=== PATIENT | male | born 1945 | race Caucasian/White ===

== ENCOUNTER → 2017-06-05 | Outpatient (CLI) | payer OTHER ==
[~2017-06-05] VITALS: Ht 188 cm; Wt 124.7 kg
[~2017-06-05] MED LIST: ACETAMINOPHEN325 M1 PO; ACETAMINOPHEN500 M1 PO; ADULT LOW DOSE81 MG PO; AMARYL4 MG PO; ASPIR 8181 MG PO; BACTRIM DS TAB1 EACH PO; BYETTA PEN 11 PENIN1; BYETTA PEN 11 PENIN2 SUBQ; CRESTOR40 MG PO; DAILY VITAMIN1 EAC5 PO; DIABETA 1.25M1.25 M1; DIABETA 5MG TABL5 MG PO; FUROSEMIDE 20 M20 MG PO; GLUCOPHAGE1000 MG PO; HUMALOG100 UNIT/1 SUBQ; JARDIANCE10 MG PO; LANSOPRAZOLE30 MG PO; LANTUS SUBQ; LEVEMIR100 UNIT/1 SUBQ; LIPITOR80 MG PO; LISINOPRIL5 MG PO; METFORMIN HYDRO25 GM; METOCLOPRAMIDE10 MG PO; METOPROLOL SUCC25 M1; METOPROLOL SUCC50 MG PO; MULTIVITAMINS PO; NIACIN50 MG; NOVOLOG100 UNIT/1 SUBQ; OMEPRAZOLE20 MG PO; PEPCID20 MG; PLAVIX 75 MG TA75 MG PO; REGLAN 10 MG TA10 MG PO; SIMVASTATIN1 GM; SLO-NIACIN500 MG PO; TRICOR145 MG PO; TRICOR48 MG; VICTOZA 3-0.6 MG/0.1 SUBQ; VITAMIN C1000 MG PO; VITAMIN D 5050000 I1 PO; ZETIA10 MG PO; [UNRECOGNIZED DRUG - OTHER]
--- NOTE | ~2017-06-05 | P ---
[facility] [place] [address] PROCEDURE REPORT Name: CHEN VEE [id number] Admission: 06/05/17 Attend Phys: Chaka Del Toro MD Discharge: Date of : 45 Report #: [id number] THIS REPORT FOR: //name// CC: Chaka Hensley MD DATE OF SERVICE: 06/05/2017 BRIEF HISTORY: The patient is a 72-year-old male who was recently seen in the office. He has a history of multiple medical problems including diabetes. He has had problems with reflux in the past. He has also been on metoclopramide for an extended period of time, presumably for gastroparesis. He was recently advised by his pharmacist to discontinue PPI, which I believe was lansoprazole. He reports he is having more problems with reflux disease and did report some dysphagia in the office. However, interestingly, today, he clearly denies symptoms of solid food dysphagia. He reports his GI symptoms are worse. In addition to reflux, he reports frequent belching and some early satiety. PREOPERATIVE DIAGNOSIS: Worsening GI symptoms off his PPI therapy. POSTOPERATIVE DIAGNOSES: Mild diffuse gastritis. MEDICATIONS: Deep sedation with propofol per anesthesia. SPECIMEN: Biopsies of gastritis. ESTIMATED BLOOD LOSS: 3 mL. PROCEDURE: EGD with biopsy. FINDINGS: Prior to propofol sedation, procedure of upper endoscopy was discussed with the patient as well as potential risks and its complications. He indicates he understands and desires to proceed. DESCRIPTION OF PROCEDURE: With the patient in left lateral decubitus position, the Fuji video endoscope was inserted in the cervical esophagus under direct vision without difficulty. Examination of this organ through its entire length revealed normal esophageal mucosa down the squamocolumnar junction. Squamocolumnar junction was inspected and noted to be unremarkable. I did not see hiatus hernia. In addition, there was no evidence of strictures or rings. Features of eosinophilic esophagitis were not seen. A hiatus hernia was not seen. The scope was advanced in the stomach, which was examined on end view as well as retroflexed views. There was some antral erythema. No ulcers were seen. In view of his diabetes and symptoms including early satiety, there is no endoscopic evidence of gastroparesis with retained solids or liquids in the [address] [address] PROCEDURE REPORT Name: CHEN VEE Room #: REG [facility].#: [id number] Admission: 06/05/17 Attend Phys: Chaka Del Toro MD Discharge: Date of : 45 Report #: [id number] stomach. Upon retroflexion, no mass lesions were seen. The pylorus was normal. Duodenal bulb was normal. Duodenal sweep down the third portion was normal. At that point, scope was withdrawn and careful circumferential views confirmed the above findings. The patient tolerated the procedure well. CONDITION OF THE PATIENT UPON DISCHARGE: Following the procedure, the patient was drowsy and will be discharged home when fully ambulatory. INSTRUCTIONS TO THE PATIENT AND FAMILY AT THE TIME OF DISCHARGE: The patient reports worsening of symptoms off his PPI. He was told by his pharmacist that there was a drug interaction with one of his medicines, which as best I can determine was lansoprazole. I asked him to speak with the pharmacist and apparently, he did but did not bring that information with him today. He may benefit from continued use of a PPI. We will have him call the office with that information, we will make further recommendations after that information has been received. At this time, we will follow up on biopsies. He has been taking metoclopramide for an extended period of time and reports no side effects associated with metoclopramide. For the fci, I would like to see if we can reduce his use of metoclopramide. For the time being, we will have him continue metoclopramide and see me in followup in the office to monitor his symptoms and make further recommendations. Otherwise, he will return to the care of Dr. Aaron Hensley and he should return to see me next several weeks in the office to follow up his symptoms. <ELECTRONICALLY SIGNED> By: Chaka Del Toro MD 06/06/17 2032 1046 1109 Chaka Del Toro MD /nt
--- NOTE | ~2017-06-05 | S ---
[facility] [place] [address] SURGICAL PATH RPT PROCEDURE Name: CHEN VEE Room #: REG CHRISTI Riley#: [id number] Admission: 06/05/17 Date of : 45 Discharge: Report #: [id number] Path Case #: [id number] PATHOLOGY REPORT COLLECTION DATE: 06/05/2017 RECEIVED DATE: 06/05/2017 SUBMITTING PHYS: Dr. Chaka Del Toro OTHER PHYS: Dr. Aaron Hensley SPECIMEN(S) RECEIVED: ASonBx of gastritis * * * * * * * * * * * * FINAL DIAGNOSIS: Gastric mucosa, gastritis, endoscopic biopsy: - Moderate reactive gastropathy. - Negative for intestinal metaplasia or atrophy. - Negative for Helicobacter pylori. (IUV:kori; 06/06/2017) COMMENT: Well-controlled Helicobacter pylori immunohistochemical stain performed on block A1- Negative. PATHOLOGIST: Lisa Nix M.D. REPORT ELECTRONICALLY SIGNED BY: Lisa Nix M.D. DATE/TIME: 06/06/2017 14:05 * * * * * * * * * * * * GROSS PATHOLOGY: Received in formalin labeled "DMAARIS Dhaliwal of gastritis," are 6 segments of sabillon soft tissue measuring 1.7 x 0.9 x 0.2 cm in aggregate dimensions and ranging from 0.3 to 0.5 cm in maximum dimension. The specimen is submitted entirely in cassette A1. (TSD; 06/05/2017) CLINICAL HISTORY: Pre-OP DX: GERD Post-OP DX: Gastritis INITIAL CPT CODE(S): A; 36457, 29503 [facility] [address], [place] [address] [facility] [address] [place] [address] SURGICAL PATH RPT PROCEDURE Name: CHEN VEE Room #: REG CHRISTI Zepeda.#: [id number] Admission: 06/05/17 Date of : 45 Discharge: Report #: [id number] Path Case #: [id number] Technical [facility] by [facility] at [address] [place] [address], [facility] [address] [address]. [facility] [address] [address] PHONE: [phone] DIRECTOR: Larry Bueno M.D. * * * END OF REPORT * * *
== END | disposition home or self-care (01) ==
LOC: GI 08:05
DX: K31.9 Disease of stomach and duodenum, unspecified (principal); K21.9 Gastro-esophageal reflux disease without esophagitis; I10 Essential (primary) hypertension; E11.9 Type 2 diabetes mellitus without complications; I25.10 Atherosclerotic heart disease of native coronary artery without angina pectoris; E78.00 Pure hypercholesterolemia, unspecified; Z95.1 Presence of aortocoronary bypass graft; Z98.890 Other specified postprocedural states; Z86.73 Personal history of transient ischemic attack (TIA), and cerebral infarction without residual deficits; Z95.5 Presence of coronary angioplasty implant and graft; Z79.4 Long term (current) use of insulin; Z79.899 Other long term (current) drug therapy
CPT/HCPCS: 62110; 62900

== ENCOUNTER 2017-07-17 16:23 | Emergency (ER) | payer OTHER ==
[~2017-07-17] VITALS: Ht 188 cm; Wt 123.4 kg
[2017-07-17] MEDS ORDERED: CLINDAMYCIN HC300 MG PO (17:44)
[2017-07-17 18:09] LABS: HEMATOCRIT 43.9 % (42.0-52.0); HEMOGLOBIN 14.5 gm/dL (14.0-18.0); MCH 28.4 pg (26.0-34.0); MCHC 32.9 g/dL (28.0-37.0); MCV 86.3 fL (80.0-100.0); PLATELET COUNT 336 thou/uL (150-400); RBC 5.08 mil/uL (4.50-6.00); RDW 15.5 % (10.5-14.5); WBC 9.6 thou/uL (4.0-11.0)
[2017-07-17 18:17] LABS: CALCIUM 9.6 mg/dL (8.5-10.1); CREATININE 1.5 mg/dL (0.7-1.3); POTASSIUM 4.3 mmol/L (3.5-5.1)
[2017-07-17] MEDS ORDERED: TRAMADOL 50 MG50 MG PO (18:20)
[2017-07-17 18:27] LABS: ABSOLUTE NEUTROPHILS 4.7 thou/uL (1.4-8.2)
== END 2017-07-17 18:54 | disposition home or self-care (01) ==
LOC: ER 16:23
PROVIDERS: Emergency Medicine
DX: L03.021 Acute lymphangitis of right finger (principal); I25.10 Atherosclerotic heart disease of native coronary artery without angina pectoris; I10 Essential (primary) hypertension; E11.9 Type 2 diabetes mellitus without complications; K21.9 Gastro-esophageal reflux disease without esophagitis; E78.00 Pure hypercholesterolemia, unspecified; Z86.73 Personal history of transient ischemic attack (TIA), and cerebral infarction without residual deficits; Z79.4 Long term (current) use of insulin

== ENCOUNTER → 2017-08-04 | Outpatient (CLI) | payer OTHER ==
[~2017-08-04] VITALS: Ht 188 cm; Wt 123.4 kg
[~2017-08-04] MED LIST changes: +ASPIR 8181 M1 PO; +CLINDAMYCIN HC300 MG PO; +TRAMADOL 50 MG50 MG PO; +VOLTAREN GEL 1100 G2 TOP; +ZANAFLEX4 MG PO
--- NOTE | ~2017-08-04 | HPC ---
[facility] [address] [place] [address] PAIN MANAGEMENT CONSULTATION Name: NANDACHEN SENA Room #: REG [facility] Riley#: [id number] Admission: 08/04/17 Attend Phys: Carlos Pandya DO Discharge: Date of : 45 Report #: [id number] THIS REPORT FOR: //name// CC: Aaron Pandya The patient is a 72-year-old gentleman seen in consultation at the request of Dr. Aaron Hensley for evaluation of pain primarily in the neck, but axial back as well. The patient notes in 1991, he had acute exacerbation of axial back pain. He states his back "went out." He was treated conservatively with physical therapy off work for about 6 weeks. Since that time, he has had on and off axial back pain; however, he has had pain in his neck for greater than a decade. It has gotten to the point that he is having difficulty with sleep secondary to neck pain. Fortunately, he denies any radicular or myelopathic symptoms. He takes ibuprofen, but this causes gastroesophageal reflux. He is taking tramadol up to 3 a day, but this has exacerbated some constipation concerns. He describes steady, aching pain, rates anywhere from 5-10 on a visual analog scale. REVIEW OF SYSTEMS: Complete review of systems is attached to chart and gone over with the patient. He is , does not smoke or drink alcohol to excess. Long history of diabetes since the early . Uses Victoza, insulin, metformin. He tells me his last hemoglobin A1c was remarkably well controlled at 5.8. History of hypertension, treated with lisinopril and metoprolol. Coronary artery disease, status post coronary artery bypass graft x 5 in 2007, endovascular stents in 2014. He has been off blood thinners now for quite some time. Dyslipidemia for which he takes Lipitor. Pantoprazole for gastroesophageal reflux. The remaining review of systems is noncontributory. The patient recently presented to the ER, 07/17/2017 with infection in his index finger. He has subsequently completed a 10-day course of antibiotics. He is also seeing an ENT surgeon (Yeison Alcantar MD) for olfactory and gustatory agnosia. Recently started on a course of antibiotics for presumed sinus infection as a possible etiology of loss of smell and taste. PHYSICAL EXAMINATION: Reveals a 6 feet 2 inches, 272 pounds gentleman, BMI 34.9 kilograms per meter squared. Blood pressure 139/76, pulse 81, respirations are 20. Cranial nerves 2-12 are grossly intact. Extraocular muscles are intact. There is no nystagmus or lateral gaze deviation. Cervical range of motion is full, though pain is reproduced with movement in all planes. He is tender to palpation over the mid cervical facets. Upper extremity strength is generally preserved. He does still have a little erythema about the distal right index finger. Upper extremity strength is about 4/5 with slight decreased right biceps strength at 3/5 (the patient prior had a traumatic disruption of the biceps tendon in the distant past). Heart is regular and rhythmical without [facility] [address] [place] [address] PAIN MANAGEMENT CONSULTATION Name: CHEN VEE Room #: REG CHRISTI Riley#: [id number] Admission: 08/04/17 Attend Phys: Carlos Pandya DO Discharge: Date of : 45 Report #: [id number] murmur. Lungs are clear to auscultation. He has a moderately endomorphic build. Rises from chair using armrest. Gait is mildly ataxic. Lumbar flexion is good to about 80 degrees. Tender across the low back about the L4-L5 area, pain in the low back exacerbated with rotation and sidebending. Lower extremity strength is generally preserved about 4/5 to all muscle groups tested. Does have a little +1-2 pretibial edema in the right lower extremity, left is unremarkable. Patellar and Achilles reflexes are diminished, but symmetric. Straight leg raise is negative. Skin integument is otherwise intact. DIAGNOSTIC STUDIES: Include x-rays of the cervical spine from 07/20/2017, which notes multilevel exuberant hypertrophic degenerative changes of the facets, left worse than right with some generalized osteopenia, disk space narrowing is greatest at C6-C7. Similarly, the lumbar spine from 07/20/2017 notes grade 1 anterolisthesis at L4-L5, some disk space narrowing with bilateral facet arthrosis at L4-L5 and L5-S1. 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 RECOMMENDATIONS: Discussion with the patient today about therapeutic options. We will try Voltaren gel topically and tizanidine 4 mg 1-2 at bedtime. If this does not afford adequate relief in 1 week, we will move forward with fluoroscopically-guided facet joint injections, specifically targeting C4-C5 and C5-C6. Thank you for allowing me to participate in the patient's care. I will keep you abreast of his progress. <ELECTRONICALLY SIGNED> By: Carlos Pandya DO 08/07/17 0709 1302 2115 Carlos Pandya DO /nt
[2017-08-04 10:30] VITALS: BP 139/76
== END ==
LOC: PAIN 07:31
DX: M47.892 Other spondylosis, cervical region (principal); M47.896 Other spondylosis, lumbar region; E11.9 Type 2 diabetes mellitus without complications

== ENCOUNTER → 2017-08-11 | Outpatient (CLI) | payer OTHER ==
[~2017-08-11] VITALS: Ht 188 cm; Wt 123.8 kg
[~2017-08-11] MED LIST changes: +TYLENOL EXTRA500 MG PO; +VITAMIN D31000 UNI2 PO
--- NOTE | ~2017-08-11 | HPC ---
[facility] [address] [place] [address] PAIN MANAGEMENT CONSULTATION Name: CHEN VEE Room #: ZAIRA CHRISTI Riley#: [id number] Admission: 08/11/17 Attend Phys: Carlos Pandya DO Discharge: Date of : 45 Report #: [id number] THIS REPORT FOR: //name// CC: Aaron Pandya The patient is a pleasant 72-year-old gentleman originally seen in consultation on 08/04/2017, diagnosed with symptomatic cervical spondylosis without myelopathy, a component of lumbar spondylosis as well, primary pain in the neck. Comorbidities including insulin dependent diabetes and coronary artery disease. Started the patient on Voltaren gel topically and tizanidine at bedtime. Planned to move forward with bilateral facet injections (C3-C4 and C4-C5 bilateral). The patient returns to pain clinic today, getting some relief with the topical Voltaren gel and tizanidine 1 at bedtime, but still rates his pain a 5-6 on a VAS, primarily in the neck, some low back pain. Notes, the pain is exacerbated with cervical range of motion and standing. PHYSICAL EXAMINATION: Relatively unchanged from prior presentation, a 72-year-old gentleman, BMI is 35 kilograms per meter squared. Vital signs stable as noted in the EMR. Tender across the upper mid cervical facets. Pain is exacerbated with rotation and sidebending. Some diffuse axial back pain, no discrete trigger points are noted. ASSESSMENT: Symptomatic cervical spondylosis by clinical exam and history. PROCEDURE: Bilateral C3-C4 and C4-C5 facet joint injections under fluoroscopy. PROCEDURE NOTE: After written informed consent was obtained, the patient was taken to fluoroscopy suite, placed in prone position. After sterile prep and drape, skin wheal was raised. A 22-gauge stylet needle was placed to contact posterior aspect of left C3-C4 and left C4-C5 cervical facet. AP and lateral projections showed good needle placement approaching posterior aspect of the joint. Procedure was repeated on the right hand side. After all four needles were placed, they were injected with 2 mg of Decadron and 1 mL of 1% preservative-free Xylocaine. After all four needles were removed, the area was cleansed, Band-Aids applied. The patient monitored for an appropriate period of time. Please do note, the patient noted his pain was absent on discharge, a 100% relief. Fluoroscopy time was 7 seconds. We will have the patient monitor blood sugars and adjust sliding scale insulin as needed. Follow up in approximately 6 weeks for reevaluation. He does have sinus surgery scheduled in about 3 [place] [address] PAIN MANAGEMENT CONSULTATION Name: CHEN VEE Room #: REG CHRISTI Riley#: [id number] Admission: 08/11/17 Attend Phys: Carlos Pandya DO Discharge: Date of : 45 Report #: [id number] Given that I will be out of the practice area, I will have him follow up with Dr. Chetan Mccauley. <ELECTRONICALLY SIGNED> By: Carlos Pandya DO 08/14/17 0709 1207 25 Carlos Pandya DO /nt
[2017-08-11 10:51] VITALS: BP 126/72
== END | disposition home or self-care (01) ==
LOC: PAIN 06:58
DX: M47.812 Spondylosis without myelopathy or radiculopathy, cervical region (principal); G89.29 Other chronic pain; E11.9 Type 2 diabetes mellitus without complications; I25.10 Atherosclerotic heart disease of native coronary artery without angina pectoris; Z79.4 Long term (current) use of insulin; Z79.891 Long term (current) use of opiate analgesic; Z79.82 Long term (current) use of aspirin; Z79.899 Other long term (current) drug therapy

== ENCOUNTER 2017-08-28 05:33 | Day surgery (SDC) | payer OTHER ==
[~2017-08-28] VITALS: Ht 188 cm; Wt 122.0 kg
--- NOTE | ~2017-08-28 | H ---
[facility] [place] [address] HISTORY AND PHYSICAL Name: CHEN VEE Room #: 150-2 [facility] M..#: [id number] Admission: 08/28/17 Attend Phys: Yeison Alcantar MD Discharge: Date of : 45 Report #: [id number] THIS REPORT FOR: //name// CC: Yeison Hensley His procedure is scheduled for the 28 of August. The patient has difficulty with his sense of taste and smell. He says that he does not breathe very well through his nose, especially at night. He has been getting a lot of sinus infections. A CT scan of his sinuses showed complete opacification of the right maxillary sinus with hypertrophy in the bone consistent with chronic sinusitis. There was swelling in the ostiomeatal area and into the anterior ethmoid air cells. This was limited to the right side. PAST MEDICAL HISTORY: Otherwise, not significant. MEDICATIONS: Include pantoprazole, Lasix, insulin, tramadol, metformin, aspirin, Lipitor, Levemir, Reglan, metoprolol, lisinopril, glimepiride. ALLERGIES: He has no known drug allergies. PHYSICAL EXAMINATION: His nose was congested. His oropharynx and oral cavity were clear. IMPRESSION: Chronic maxillary and ethmoid sinusitis. PLAN: Right endoscopic maxillary antrostomy and anterior ethmoidectomy. <ELECTRONICALLY SIGNED> By: Yeison Alcantar MD 08/28/17 0737 1336 1408 Yeison Alcantar MD /yasmin
--- NOTE | ~2017-08-28 | H ---
[facility] [place] [address] HISTORY AND PHYSICAL Name: CHEN VEE Room #: 150-2 [facility] M.R.#: [id number] Admission: 08/28/17 Attend Phys: Yeison Alcantar MD Discharge: Date of : 45 Report #: [id number] THIS REPORT FOR: //name// CC: Yeison Hensley DATE OF SERVICE: 08/28/2017 PREOPERATIVE DIAGNOSES: Chronic maxillary and ethmoid sinusitis right side with bleeding from the nose on the left side. POSTOPERATIVE DIAGNOSES: Chronic maxillary and ethmoid sinusitis right side with bleeding from the nose on the left side. OPERATIVE PROCEDURE: Endoscopic control of epistaxis left side, endoscopic right maxillary antrostomy with removal of tissue, and right anterior ethmoidectomy. ANESTHESIA: General by laryngeal mask. DESCRIPTION OF PROCEDURE: The patient was taken to the operating room and placed in supine position. General anesthesia was induced by laryngeal mask. Once adequate general anesthesia was obtained, local nasal anesthesia was induced by submucoperiosteal injection of 1% lidocaine with 1:100,000 epinephrine and topical application of cocaine solution. The patient was then draped in a sterile manner. The nasal endoscope was used to visualize the left nasal cavity and I examined the left nasal cavity including the turbinates, middle meatus and inferior meatus. There was some bleeding from the mid superior septum. This was controlled with silver nitrate cautery. On the right side, the middle turbinate was deviated medially and the uncinate process was removed using a curved blade on the microdebrider. I found the natural opening of the maxillary sinus and then removed the soft fontanelle posteriorly and inferiorly. Within the sinus was thick purulent mucus with a lot of swelling. I was able to make a large maxillary antrostomy by removing the soft fontanelle and then removing tissue from the natural opening area and then inferiorly taking down a portion of the medial wall. An ethmoidectomy was performed by removing the ethmoidal bulla and then following the ethmoid air cells back to the basal lamella and then superiorly towards the frontal duct at the root of the uncinate process. FloSeal was placed into the middle meatus for hemostasis. Blood loss of procedure was 5 mL. The patient was then awoken and taken to the recovery room in stable condition for postoperative monitoring. By: 0824 0836 Yeison Alcantar MD /nt
[2017-08-28 06:45] LABS: CALCIUM 9.3 mg/dL (8.5-10.1); CREATININE 1.2 mg/dL (0.7-1.3)
[2017-08-28 06:47] LABS: POTASSIUM 4.8 mmol/L (3.5-5.1)
[2017-08-28 06:50] LABS: ALBUMIN 3.5 g/dL (3.4-5.0); TOTAL BILIRUBIN 0.5 mg/dL (<0.1-1.0)
[2017-08-28 07:46] VITALS: BP 131/75
[2017-08-28 08:49] VITALS: BP 131/75
== END 2017-08-28 09:20 | disposition home or self-care (01) ==
LOC: OR 05:33 → TBA 05:33 → OR 09:20
PROVIDERS: Otolaryngology
DX: J32.0 Chronic maxillary sinusitis (principal); J32.2 Chronic ethmoidal sinusitis; R04.0 Epistaxis; I10 Essential (primary) hypertension; E11.9 Type 2 diabetes mellitus without complications; E78.00 Pure hypercholesterolemia, unspecified; K21.9 Gastro-esophageal reflux disease without esophagitis; Z79.899 Other long term (current) drug therapy; Z79.4 Long term (current) use of insulin; Z86.73 Personal history of transient ischemic attack (TIA), and cerebral infarction without residual deficits; Z98.890 Other specified postprocedural states; Z79.82 Long term (current) use of aspirin
CPT/HCPCS: 50010; 50101; 50386; 50398; 51751; 56635; 62110; 62900; 70005

== ENCOUNTER → 2017-10-23 | Outpatient (CLI) | payer OTHER ==
[~2017-10-23] VITALS: Ht 188 cm; Wt 124.6 kg
[~2017-10-23] MED LIST changes: +NORCO 5-325 TA1 EACH PO; +PREVACID30 MG PO; +SYNTHROID25 MC1 PO
--- NOTE | ~2017-10-23 | HPC ---
[facility] [address] [address] PAIN MANAGEMENT CONSULTATION Name: CHEN VEE Room #: REG CHRISTI Rosemary#: [id number] Admission: 10/23/17 Attend Phys: Chetan Mccauley MD Discharge: Date of : 45 Report #: [id number] THIS REPORT FOR: //name// CC: Chetan Hensley MD DATE OF SERVICE: 10/23/2017 CHIEF COMPLAINT: Low back pain with radiation into the left leg. The patient is a 72-year-old gentleman who sees Dr. Pandya in the past. With Dr. Pandya's departure to [facility], I have taken over his care in the pain clinic. He is here today with a history of chronic neck pain, but his biggest problem is back and leg pain that follows a dermatomal distribution. He has mild discomfort in the right. He says the pain is severe when he is standing or walking or any sort of weightbearing activities and has been progressively worse. He has been alleviating with a hot shower. The patient has a history of a thalamic infarct and coronary artery disease. He has sleep apnea, insulin-dependent diabetes and chronic kidney disease. He follows with mechanic assistant, Dr. Srikanth May. He has been on Plavix in the past. He was uncertain if he was on it and needed to call home and his confirmed that the shoe box where he keeps his current medicines did not contain a Plavix bottle. At any rate, we were still concerned that given some of his confusion over his medicines that he perhaps had taken Plavix. I was not inclined to provide him with an injection today. His PQRS shows a slightly confused 72-year-old gentleman, 35 BMI. History of hypertension, but it is well controlled with a blood pressure of 138/83 and heart rate 86. He is not a fall risk evident by his exam today and has denied a fall in the last 3 months. He is not on any opioid medications from our clinic at this time, but has received a prescription from Dr. Hensley for 42 tablets within the last month. Apparently, Dr. Hensley is retiring and he is not sure where he will get medications coming in the future. All other medications were reviewed and reconciled. Physical exam continuation shows tenderness across the low back, pain with forward flexion, extension, and positive straight leg raising on the left reproducing pain in the L4-L5 and L5-S1 distribution. IMPRESSION: 1. Lumbar radiculopathy, left. 2. Cervicalgia with facet arthropathy. 3. [place] [address] PAIN MANAGEMENT CONSULTATION Name: NANDACHEN SENA Room #: REG CHRISTI Riley#: [id number] Admission: 10/23/17 Attend Phys: Chetan Mccauley MD Discharge: Date of : 45 Report #: [id number] 4. Hypertension. 5. Obstructive sleep apnea. 6. Insulin-dependent diabetes. 7. Hypertension. 8. Chronic kidney disease. 9. Gastroesophageal reflux disease. PLAN: The patient will return to the pain clinic in 1 week for an epidural steroid injection. By: 1728 0056 Chetan Mccauley MD /nt
[2017-10-23 14:29] VITALS: BP 138/63
== END ==
LOC: PAIN 07:01
DX: M54.16 Radiculopathy, lumbar region (principal); M54.2 Cervicalgia; I12.9 Hypertensive chronic kidney disease with stage 1 through stage 4 chronic kidney disease, or unspecified chronic kidney disease; N18.9 Chronic kidney disease, unspecified; E11.9 Type 2 diabetes mellitus without complications; I25.10 Atherosclerotic heart disease of native coronary artery without angina pectoris; G47.33 Obstructive sleep apnea (adult) (pediatric); K21.9 Gastro-esophageal reflux disease without esophagitis

== ENCOUNTER 2017-12-13 05:23 | Observation (INO) | payer OTHER ==
[~2017-12-13] VITALS: Ht 188 cm; Wt 122.0 kg
--- NOTE | ~2017-12-13 | PATH ---
[facility] [address] [place] [address] PATHOLOGY RPT PROCEDURE Name: CHEN VEE Room #: 424-P WAQAS Hernandez MCora#: [id number] Admission: 12/13/17 Date of : 45 Discharge: 12/14/17 Report #: [id number] Path Case #: [id number] [facility] Accession Number: [id number] . 01 Material submitted: . GALLBLADDER . 01 Clinician provided ICD-10: K80.20 . 01 Clinical history: . Gallstones . 02 Diagnosis: Gallbladder, cholecystectomy: - Mild chronic cholecystitis. - Cholelithiasis. . 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 02 Electronically signed: . Lisa Nix MD, Pathologist NPI- [id number] . 01 Gross description: . The specimen is received in formalin, labeled "Chen Vee, gallbladder" and consists of an intact green-sabillon gallbladder measuring 6.8 x 2.4 x 2.0 cm. Opening the specimen reveals the gallbladder is filled with multiple black and asymmetrically shaped calculi measuring 3.3 x 3.0 x 1.2 cm in aggregate. The mucosa is green-sabillon and trabeculated with a wall thickness ranging from 0.1-0.2 cm. No masses or lesions are identified. Seedling Sorter sections are submitted in A1. (SDY; 12/13/2017) SYU/SYU . 02 Pathologist provided ICD-10: K80.10 . 02 CPT . 934670 Specimen Comment: A courtesy copy of this report has been sent to Specimen Comment: [phone], . Specimen Comment: Report sent to / DR KENT Performed at: [address] [id number] [address] [address] PATHOLOGY RPT PROCEDURE Name: CHEN VEE Room #: 424-P WAQAS Riley#: [id number] Admission: 12/13/17 Date of : 45 Discharge: 12/14/17 Report #: [id number] Path Case #: [id number] MD George Goyal MD Phone: [phone] Performed at: [address] [id number] MD Lisa Nix MD Phone: [phone]
--- NOTE | ~2017-12-13 | O ---
[facility] [place] [address] OPERATIVE REPORT Name: CHEN VEE Room #: 150-1 [facility]..#: [id number] Admission: 12/13/17 Attend Phys: Darnell Cool MD Discharge: Date of : 45 Report #: [id number] THIS REPORT FOR: //name// CC: Aaron Cool DATE OF SERVICE: 12/13/[address] Aaron Hensley and Dr. Darnell Cool. PREOPERATIVE DIAGNOSES: Cholelithiasis, cholecystitis, biliary colic. POSTOPERATIVE DIAGNOSES: Cholelithiasis, cholecystitis, biliary colic. PROCEDURE: Laparoscopic cholecystectomy. SURGEON: Darnell Cool MD. UAT TESTER: Leatha Lutz RN. ANESTHESIA: General. DESCRIPTION OF PROCEDURE: The patient was brought to the operating room and placed on operative table in the supine position. Sequential compression devices were in place for DVT prophylaxis. He received an appropriate preoperative dose of antibiotics. The patient underwent a general endotracheal anesthesia and the abdomen was then prepped and draped in a sterile fashion. Skin and subcutaneous tissue around the umbilicus was then infiltrated with 0.5% Marcaine. Infraumbilical skin incision was then performed using #11 scalpel blade. Dissection was carried down through subcutaneous tissue and the fascia, which was then grasped between 2 Triston clamps and incised with the curved Hernandes scissors. Peritoneum was entered and a pursestring suture of 0 Vicryl was then placed in the fascia. A 12-mm disposable Pau port was inserted through the opening and held into place with the balloon port and the pursestring suture. Pneumoperitoneum was obtained to a level of 10-15 mmHg. Laparoscope was inserted through this port and additional ports were then placed under direct visualization. There were 2 right upper quadrant 5-mm Surgiport as well as an upper midline 11-mm Surgiport all inserted under direct visualization after infiltration with 0.5% Marcaine. An exploration was performed, which revealed a thickened, chronically and subacutely inflamed gallbladder with numerous adhesions around it. There were no other intra-abdominal abnormalities. Some adhesions around the gallbladder were carefully dissected free using the hook electrocautery and the [place] dissector with the electrocautery. I was eventually able to grasp the gallbladder and retract it superiorly and additional adhesions were dissected free around the gallbladder and liver edge. [address] [address] OPERATIVE REPORT Name: CHEN VEE Room #: 150-1 [facility] Marco.Keagan#: [id number] Admission: 12/13/17 Attend Phys: Darnell Cool MD Discharge: Date of : 45 Report #: [id number] I was eventually able to carefully dissect free the cystic artery, was wrapped around the cystic duct. I was able to doubly clip on each side and divided this with the scissors and dissected that cystic artery free from the neck of the gallbladder and the cystic duct. I then carefully dissected the cystic duct free down to the cystic common bile duct junction, which was clearly identified. There were stones impacted within this cystic duct. I triply clipped the cystic duct on the common bile duct side and doubly clipped the gallbladder on the gallbladder side and divided with the scissors. I then carefully began dissecting free the neck of the gallbladder and wrapped around the cystic artery, was a fibrous structure, which was either some scar tissue where it might have been a small duct of Luschka that went directly into the bed of the gallbladder. After carefully dissecting this free, I doubly clipped this structure on each side and divided with the scissors. Due to the extensive scarring and adhesions around this area, this doubled the operative time. This operation took over 2 hours, which is more than double the normal operative time. I was then able to carefully dissect the gallbladder free from the gallbladder bed using the hook electrocautery. Meticulous hemostasis was obtained in the bed using the electrocautery. The gallbladder was retracted superiorly and the bed inspected and further hemostasis obtained using the electrocautery and found to be intact. The gallbladder was then transected, placed inside an EndoCatch bag and brought out through the periumbilical port and sent as specimen to pathology. Port was then returned to the abdomen. The area was then copiously irrigated with warm saline solution, which was suctioned free and hemostasis was checked and obtained using electrocautery and found to be intact. Due to the extensive dissection and scarring in the area, I decided to place a 19-Chinese round fluted Justin drain in the Morison's pouch and bed of the gallbladder was brought out through the lower lateral 5-mm Surgiport site, secured to the skin with a 3-0 nylon suture. The remaining ports were then all removed under direct visualization, hemostasis intact at each port site. Pneumoperitoneum was released and the periumbilical port was then also removed under direct visualization, hemostasis intact at that port site as well. The periumbilical fascia was then closed using the 0 Vicryl pursestring suture. The upper midline fascia was then closed using [id number] 0 Vicryl suture. Skin was then closed using interrupted vertical mattress 5-0 nylon sutures and the wound was then dressed with Band-Aids and a drain sponge around the drain site. The patient was then awakened from the general endotracheal anesthesia, extubated, and taken to recovery room in good condition. Estimated blood loss was approximately 30 mL and the patient tolerated procedure well. All sponge, lap and instrument counts correct x 2. <ELECTRONICALLY SIGNED> By: Darnell Cool MD 12/13/17 1433 [id number] Darnell Cool MD /nt
[~2017-12-13 05:23] MED LIST changes: +PROBIOTIC1 EAC1 PO; +PROTONIX40 M1 PO; +STOOL SOFTENER100 MG PO; +STOOL SOFTENER250 MG PO; +VITAMIN D35000 UNI1 PO
[2017-12-13 07:21] VITALS: BP 125/74
[2017-12-13 07:41] LABS: CALCIUM 9.8 mg/dL (8.5-10.1); CREATININE 1.4 mg/dL (0.7-1.3); POTASSIUM 4.3 mmol/L (3.5-5.1)
[2017-12-13] MEDS ORDERED: NORCO 5-325 TA1 EACH PO (11:56)
[2017-12-13 17:27] VITALS: BP 133/73
[2017-12-13 19:28] VITALS: BP 134/60
[2017-12-14 05:33] VITALS: BP 122/58
[2017-12-14 06:22] LABS: HEMATOCRIT 39.1 % (42.0-52.0); MCH 28.7 pg (26.0-34.0); MCHC 33.2 g/dL (28.0-37.0); MCV 86.6 fL (80.0-100.0); RBC 4.52 mil/uL (4.50-6.00); RDW 15.1 % (10.5-14.5)
[2017-12-14 06:42] LABS: ALBUMIN 2.7 g/dL (3.4-5.0); CALCIUM 8.6 mg/dL (8.5-10.1); CREATININE 1.4 mg/dL (0.7-1.3); POTASSIUM 4.5 mmol/L (3.5-5.1); TOTAL BILIRUBIN 0.4 mg/dL (<0.1-1.0); TOTAL PROTEIN 5.9 g/dL (6.4-8.2)
[2017-12-14 07:17] VITALS: BP 132/62
[2017-12-14 12:02] VITALS: BP 132/62
[2017-12-14 12:28] VITALS: BP 132/62
== END 2017-12-14 12:46 | disposition home or self-care (01) ==
LOC: OR 05:23 → TBA 05:24 → OR 12:47 → 4E 15:54 → OR 15:55 → 4E 12-14 12:46
PROVIDERS: Surgery
DX: K80.10 Calculus of gallbladder with chronic cholecystitis without obstruction (principal); I13.0 Hypertensive heart and chronic kidney disease with heart failure and stage 1 through stage 4 chronic kidney disease, or unspecified chronic kidney disease; E11.22 Type 2 diabetes mellitus with diabetic chronic kidney disease; N18.9 Chronic kidney disease, unspecified; I50.9 Heart failure, unspecified; E78.00 Pure hypercholesterolemia, unspecified; K21.9 Gastro-esophageal reflux disease without esophagitis; I25.10 Atherosclerotic heart disease of native coronary artery without angina pectoris; N40.0 Benign prostatic hyperplasia without lower urinary tract symptoms; G47.33 Obstructive sleep apnea (adult) (pediatric); M19.90 Unspecified osteoarthritis, unspecified site; Z95.5 Presence of coronary angioplasty implant and graft; Z86.73 Personal history of transient ischemic attack (TIA), and cerebral infarction without residual deficits
CPT/HCPCS: 10783; 50010; 50101; 50331; 50411; 50555; 50558; 51474; 51489; 52266; 53312; 53314; 56462; 56524; 56527; 56528; 62110; 62900; 70005

== ENCOUNTER → 2018-07-20 | Outpatient (CLI) | payer OTHER ==
[~2018-07-20] VITALS: Ht 188 cm; Wt 124.7 kg
[2018-07-20 08:58] LABS: HEMATOCRIT 47.4 % (42.0-52.0); HEMOGLOBIN 15.5 gm/dL (14.0-18.0); MCH 28.7 pg (26.0-34.0); MCHC 32.8 g/dL (28.0-37.0); MCV 87.5 fL (80.0-100.0); RBC 5.42 mil/uL (4.50-6.00); RDW 15.5 % (10.5-14.5); WBC 8.9 thou/uL (4.0-11.0)
[2018-07-20 09:06] LABS: CALCIUM 9.8 mg/dL (8.5-10.1); CREATININE 1.4 mg/dL (0.7-1.3); POTASSIUM 4.6 mmol/L (3.5-5.1)
[2018-07-20 09:08] VITALS: BP 125/71
== END | disposition home or self-care (01) ==
LOC: SPEC 07:22
PROVIDERS: Nuclear Medicine Nuclear Cardiology
DX: I70.238 Atherosclerosis of native arteries of right leg with ulceration of other part of lower leg (principal); L97.919 Non-pressure chronic ulcer of unspecified part of right lower leg with unspecified severity; I70.1 Atherosclerosis of renal artery; I13.0 Hypertensive heart and chronic kidney disease with heart failure and stage 1 through stage 4 chronic kidney disease, or unspecified chronic kidney disease; E11.22 Type 2 diabetes mellitus with diabetic chronic kidney disease; N18.9 Chronic kidney disease, unspecified; I50.32 Chronic diastolic (congestive) heart failure; N40.0 Benign prostatic hyperplasia without lower urinary tract symptoms; E78.5 Hyperlipidemia, unspecified; K21.9 Gastro-esophageal reflux disease without esophagitis; Z86.73 Personal history of transient ischemic attack (TIA), and cerebral infarction without residual deficits; Z95.1 Presence of aortocoronary bypass graft; Z98.890 Other specified postprocedural states; Z79.899 Other long term (current) drug therapy; Z79.4 Long term (current) use of insulin; Z87.19 Personal history of other diseases of the digestive system; Z79.82 Long term (current) use of aspirin

== ENCOUNTER → 2020-09-14 | Outpatient (CLI) | payer OTHER | LOC: HYPER 08:26 | PROVIDERS: ATTEND Emergency Medicine | DX: E11.622 Type 2 diabetes mellitus with other skin ulcer (principal); L89.313 Pressure ulcer of right buttock, stage 3; L98.412 Non-pressure chronic ulcer of buttock with fat layer exposed; E11.51 Type 2 diabetes mellitus with diabetic peripheral angiopathy without gangrene; E78.5 Hyperlipidemia, unspecified; E66.9 Obesity, unspecified; I25.10 Atherosclerotic heart disease of native coronary artery without angina pectoris; I10 Essential (primary) hypertension; M19.90 Unspecified osteoarthritis, unspecified site; Z86.73 Personal history of transient ischemic attack (TIA), and cerebral infarction without residual deficits; Z95.1 Presence of aortocoronary bypass graft; Z95.5 Presence of coronary angioplasty implant and graft; Z95.828 Presence of other vascular implants and grafts; Z68.31 Body mass index [BMI] 31.0-31.9, adult; Z86.14 Personal history of Methicillin resistant Staphylococcus aureus infection; Z79.84 Long term (current) use of oral hypoglycemic drugs; Z79.82 Long term (current) use of aspirin ==

== ENCOUNTER → 2020-09-21 | Outpatient (CLI) | payer OTHER | LOC: HYPER 09:43 | PROVIDERS: ATTEND Emergency Medicine | DX: E11.622 Type 2 diabetes mellitus with other skin ulcer (principal); L89.313 Pressure ulcer of right buttock, stage 3; L98.412 Non-pressure chronic ulcer of buttock with fat layer exposed; E11.51 Type 2 diabetes mellitus with diabetic peripheral angiopathy without gangrene; E78.5 Hyperlipidemia, unspecified; E66.9 Obesity, unspecified; I25.10 Atherosclerotic heart disease of native coronary artery without angina pectoris; I10 Essential (primary) hypertension; M19.90 Unspecified osteoarthritis, unspecified site; Z86.73 Personal history of transient ischemic attack (TIA), and cerebral infarction without residual deficits; Z95.1 Presence of aortocoronary bypass graft; Z95.5 Presence of coronary angioplasty implant and graft; Z95.828 Presence of other vascular implants and grafts; Z68.31 Body mass index [BMI] 31.0-31.9, adult; Z86.14 Personal history of Methicillin resistant Staphylococcus aureus infection; Z79.84 Long term (current) use of oral hypoglycemic drugs; Z79.82 Long term (current) use of aspirin ==

== ENCOUNTER → 2020-10-05 | Outpatient (CLI) | payer OTHER | LOC: HYPER 08:55 | PROVIDERS: ATTEND Emergency Medicine | DX: E11.622 Type 2 diabetes mellitus with other skin ulcer (principal); L89.313 Pressure ulcer of right buttock, stage 3; L98.412 Non-pressure chronic ulcer of buttock with fat layer exposed; E11.51 Type 2 diabetes mellitus with diabetic peripheral angiopathy without gangrene; E78.5 Hyperlipidemia, unspecified; E66.9 Obesity, unspecified; I25.10 Atherosclerotic heart disease of native coronary artery without angina pectoris; I10 Essential (primary) hypertension; M19.90 Unspecified osteoarthritis, unspecified site; Z86.73 Personal history of transient ischemic attack (TIA), and cerebral infarction without residual deficits; Z95.1 Presence of aortocoronary bypass graft; Z95.5 Presence of coronary angioplasty implant and graft; Z95.828 Presence of other vascular implants and grafts; Z68.31 Body mass index [BMI] 31.0-31.9, adult; Z86.14 Personal history of Methicillin resistant Staphylococcus aureus infection; Z79.84 Long term (current) use of oral hypoglycemic drugs; Z79.82 Long term (current) use of aspirin ==

== ENCOUNTER → 2020-10-19 | Outpatient (CLI) | payer OTHER | LOC: HYPER 08:48 | PROVIDERS: ATTEND Emergency Medicine | DX: E11.622 Type 2 diabetes mellitus with other skin ulcer (principal); L89.313 Pressure ulcer of right buttock, stage 3; L98.412 Non-pressure chronic ulcer of buttock with fat layer exposed; E11.51 Type 2 diabetes mellitus with diabetic peripheral angiopathy without gangrene; E78.5 Hyperlipidemia, unspecified; E66.9 Obesity, unspecified; I25.10 Atherosclerotic heart disease of native coronary artery without angina pectoris; I10 Essential (primary) hypertension; M19.90 Unspecified osteoarthritis, unspecified site; Z86.73 Personal history of transient ischemic attack (TIA), and cerebral infarction without residual deficits; Z95.1 Presence of aortocoronary bypass graft; Z95.5 Presence of coronary angioplasty implant and graft; Z95.828 Presence of other vascular implants and grafts; Z68.31 Body mass index [BMI] 31.0-31.9, adult; Z86.14 Personal history of Methicillin resistant Staphylococcus aureus infection; Z79.84 Long term (current) use of oral hypoglycemic drugs; Z79.82 Long term (current) use of aspirin ==

== ENCOUNTER 2021-03-30 09:56 | Emergency (ER) | payer OTHER ==
[~2021-03-30] VITALS: Ht 185.4 cm; Wt 97.3 kg
[2021-03-30 10:20] LABS: ABSOLUTE NEUTROPHILS 7.1 thou/uL (1.4-8.2); BASOPHILS 0.7 % (0.0-2.0); EOSINOPHILS 0.4 % (0.0-3.0); HEMATOCRIT 42.7 % (42.0-52.0); HEMOGLOBIN 13.9 gm/dL (14.0-18.0); LYMPHOCYTES 12.9 % (24.0-44.0); MCH 28.9 pg (26.0-34.0); MCHC 32.5 g/dL (28.0-37.0); MONOCYTES 8.7 % (1.0-8.0); PLATELET COUNT 451 thou/uL (150-400); POLYS 77.3 % (36.0-66.0); RDW 16.3 % (10.5-14.5); WBC 9.1 thou/uL (4.0-11.0)
[2021-03-30 10:39] LABS: CALCIUM 10.3 mg/dL (8.5-10.1); CREATININE 0.9 mg/dL (0.7-1.3); POTASSIUM 4.7 mmol/L (3.5-5.1)
[2021-03-30 11:30] VITALS: BP 125/49
--- NOTE | 2021-03-30 14:38 | EKG ---
[address] [place] [address] [email or web address] [address] ELECTROCARDIOGRAM REPORT Name: ROYAL VEEWIN NATHEN Room #: DEP MELA Riley#: [id number] Admission: 03/30/21 Attend Phys: Discharge: 03/30/21 Date of : 45 Report #: [id number] [facility] ED Test Date: 2021-03-30 Test Time: 10:10:06 Pat Name: CHEN VEE Department: Room: Gender: M Block Placer: Roxie HUERTA : 1945 Requested By: [place] Coleman Order Number: [id number] MD: James Cloud Measurements Intervals [place] Rate: 84 P: 76 CT: 178 QRS: 87 QRSD: 137 T: -14 QT: 367 QTc: 434 Interpretive Statements Sinus rhythm Right bundle branch block Minimal ST elevation, lateral leads Compared to ECG 07/26/1997 21:03:00 Right bundle-branch block now present ST (T wave) deviation now present Electronically Signed On 03-30-2021 14:38:05 DIRECTOR PAYER by James Cloud [email or web address] <ELECTRONICALLY SIGNED> By: James Cloud MD, [facility] 03/30/21 1438 1010 1010 James Cloud MD, FAC /EPI
== END 2021-03-30 11:28 | disposition home or self-care (01) ==
LOC: ER 09:56
PROVIDERS: Emergency Medicine
DX: E16.2 Hypoglycemia, unspecified (principal); M19.90 Unspecified osteoarthritis, unspecified site; E11.9 Type 2 diabetes mellitus without complications; K21.9 Gastro-esophageal reflux disease without esophagitis; I12.9 Hypertensive chronic kidney disease with stage 1 through stage 4 chronic kidney disease, or unspecified chronic kidney disease; N18.9 Chronic kidney disease, unspecified; I73.9 Peripheral vascular disease, unspecified; Z95.1 Presence of aortocoronary bypass graft; Z79.4 Long term (current) use of insulin; Z79.891 Long term (current) use of opiate analgesic; Z79.899 Other long term (current) drug therapy

== ENCOUNTER → 2021-04-15 | Outpatient (CLI) | payer OTHER | LOC: HYPER 09:29 | PROVIDERS: ATTEND Emergency Medicine | DX: E11.621 Type 2 diabetes mellitus with foot ulcer (principal); L89.620 Pressure ulcer of left heel, unstageable; L97.422 Non-pressure chronic ulcer of left heel and midfoot with fat layer exposed; L84 Corns and callosities; E11.40 Type 2 diabetes mellitus with diabetic neuropathy, unspecified; E11.51 Type 2 diabetes mellitus with diabetic peripheral angiopathy without gangrene; E78.5 Hyperlipidemia, unspecified; E66.9 Obesity, unspecified; I25.10 Atherosclerotic heart disease of native coronary artery without angina pectoris; I10 Essential (primary) hypertension; K21.9 Gastro-esophageal reflux disease without esophagitis; M19.90 Unspecified osteoarthritis, unspecified site; Z86.73 Personal history of transient ischemic attack (TIA), and cerebral infarction without residual deficits; Z95.1 Presence of aortocoronary bypass graft; Z95.5 Presence of coronary angioplasty implant and graft; Z95.828 Presence of other vascular implants and grafts; Z68.31 Body mass index [BMI] 31.0-31.9, adult; Z86.14 Personal history of Methicillin resistant Staphylococcus aureus infection; Z79.84 Long term (current) use of oral hypoglycemic drugs; Z79.82 Long term (current) use of aspirin ==

== ENCOUNTER → 2021-04-26 | Outpatient (CLI) | payer OTHER | LOC: HYPER 09:43 | PROVIDERS: ATTEND Emergency Medicine | DX: E11.621 Type 2 diabetes mellitus with foot ulcer (principal); L89.620 Pressure ulcer of left heel, unstageable; L97.422 Non-pressure chronic ulcer of left heel and midfoot with fat layer exposed; E11.40 Type 2 diabetes mellitus with diabetic neuropathy, unspecified; E11.51 Type 2 diabetes mellitus with diabetic peripheral angiopathy without gangrene; L84 Corns and callosities; M19.90 Unspecified osteoarthritis, unspecified site; E78.5 Hyperlipidemia, unspecified; I10 Essential (primary) hypertension; I25.10 Atherosclerotic heart disease of native coronary artery without angina pectoris; N40.0 Benign prostatic hyperplasia without lower urinary tract symptoms; Z86.73 Personal history of transient ischemic attack (TIA), and cerebral infarction without residual deficits; Z86.14 Personal history of Methicillin resistant Staphylococcus aureus infection; Z91.81 History of falling; Z79.82 Long term (current) use of aspirin; Z79.84 Long term (current) use of oral hypoglycemic drugs; Z79.4 Long term (current) use of insulin; Z95.828 Presence of other vascular implants and grafts ==

== ENCOUNTER → 2021-04-26 | Outpatient (CLI) | payer OTHER | LOC: SJCVCIMAG 10:54 | PROVIDERS: ATTEND Emergency Medicine | DX: I77.1 Stricture of artery (principal); I73.9 Peripheral vascular disease, unspecified; L97.428 Non-pressure chronic ulcer of left heel and midfoot with other specified severity ==

== ENCOUNTER → 2021-05-03 | Outpatient (CLI) | payer OTHER | LOC: HYPER 13:49 | PROVIDERS: ATTEND Emergency Medicine | DX: L89.623 Pressure ulcer of left heel, stage 3 (principal); L89.896 Pressure-induced deep tissue damage of other site; L89.153 Pressure ulcer of sacral region, stage 3; S90.812A Abrasion, left foot, initial encounter; L84 Corns and callosities; E11.40 Type 2 diabetes mellitus with diabetic neuropathy, unspecified; E11.51 Type 2 diabetes mellitus with diabetic peripheral angiopathy without gangrene; E78.5 Hyperlipidemia, unspecified; I10 Essential (primary) hypertension; I25.10 Atherosclerotic heart disease of native coronary artery without angina pectoris; N40.0 Benign prostatic hyperplasia without lower urinary tract symptoms; K21.9 Gastro-esophageal reflux disease without esophagitis; M19.90 Unspecified osteoarthritis, unspecified site; Z86.73 Personal history of transient ischemic attack (TIA), and cerebral infarction without residual deficits; Z86.14 Personal history of Methicillin resistant Staphylococcus aureus infection; Z79.82 Long term (current) use of aspirin; Z79.84 Long term (current) use of oral hypoglycemic drugs; Z95.828 Presence of other vascular implants and grafts; X58.XXXA Exposure to other specified factors, initial encounter; Y93.89 Activity, other specified; Y92.89 Other specified places as the place of occurrence of the external cause; Y99.8 Other external cause status ==